=== PATIENT | female | born 1980 | race Caucasian/White ===

== ENCOUNTER 2017-05-27 22:42 | Emergency (ER) | payer MEDICAID, OTHER ==
[~2017-05-27] VITALS: Ht 152.4 cm; Wt 87.0 kg
[~2017-05-27 22:42] MED LIST: ALBU05; LISI2.5T47 PO; PROAIR
[2017-05-27] MEDS ORDERED: IPRATROPIUM BROMIDE (0.02%) 0.5MG/2.5ML NEB HHN STA (23:00)
[2017-05-27] MEDS ORDERED: ALBUTEROL (0.083%) 2.5MG/3ML NEB HHN STA (23:00)
[2017-05-27] MEDS ORDERED: PREDNISONE 20MG TABLET PO STA (23:00)
[2017-05-28 00:28] VITALS: BP 138/85
== END 2017-05-28 01:11 | disposition home or self-care (01) ==
LOC: ER 23:55
DX: J45.901 Unspecified asthma with (acute) exacerbation (principal); I10 Essential (primary) hypertension; E03.9 Hypothyroidism, unspecified
CPT/HCPCS: 94644; 99285; J7512; J7611

== ENCOUNTER 2017-09-05 13:13 | Emergency (ER) | payer OTHER ==
[~2017-09-05] VITALS: Ht 152.4 cm; Wt 87.0 kg
[2017-09-05] MEDS ORDERED: DIPHENHYDRAMINE 50MG/ML VIAL IM ONE (14:30)
[2017-09-05] MEDS ORDERED: DEXAMETHASONE 10 MG/ML VIAL IM ONE (14:30)
[2017-09-05 14:38] VITALS: BP 162/105
[2017-09-05] MEDS: IPRATROPIUM/ALBUTEROL 0.5-3(2.5)MG/3ML NEB HHN ONE ×2 (14:54→16:06)
[2017-09-05] MEDS ORDERED: FAMOTIDINE 20MG TABLET PO ONE (15:00)
== END 2017-09-05 15:45 | disposition home or self-care (01) ==
LOC: ER 15:30
DX: R21 Rash and other nonspecific skin eruption (principal); J45.909 Unspecified asthma, uncomplicated; I10 Essential (primary) hypertension; Z79.899 Other long term (current) drug therapy
CPT/HCPCS: 94640; 96372; 99284; J1100; J1200; J7620

== ENCOUNTER 2018-05-17 17:33 | Emergency (ER) | payer MEDICAID, OTHER ==
[~2018-05-17] VITALS: Ht 167.6 cm; Wt 96.0 kg
[2018-05-17] MEDS ORDERED: VISCOUS LIDOCAINE 2% 15 ML UDC MM STA (19:12)
[2018-05-17] MEDS ORDERED: ONDANSETRON HCL 4MG/2ML INJ IV ONE (19:15)
[2018-05-17] MEDS ORDERED: MAGNESIUM/ALUMINUM HYDROXIDE/SIMETHICONE 30ML UDC PO ONE (19:15)
[2018-05-17] MEDS ORDERED: SODIUM CHLORIDE 0.9% IRRIG SOLUTION 1000ML IR ONE (19:15)
[2018-05-17] MEDS ORDERED: FAMOTIDINE 20MG/2ML VIAL IV ONE (19:15)
[2018-05-17] MEDS ORDERED: SODIUM CHLORIDE 0.9% 1,000 ML IR NR (19:30)
[2018-05-17] MEDS ORDERED: DIATR MEGLU/DIATRIZOATE SOLN 30ML ONE (19:31)
[2018-05-17 19:40] LABS: BASOPHILS % 0.3 % (0.0-2.0); EOSINOPHILS % 4.4 % (0.0-5.0); HEMATOCRIT. 32.4 % (36.0-48.0); LYMPHOCYTES % 38.3 % (20.0-50.0); MEAN CORPUSCULAR HEMOGLOBIN 19.9 pg (28.0-32.0); MEAN CORPUSCULAR VOLUME 64.7 fL (81.0-99.0); MEAN PLATELET VOLUME 8.7 fl (7.4-10.4); MONOCYTES % 6.2 % (2.0-8.0); NEUTROPHILS % 50.8 % (40.0-76.0); PLATELET 514 x1000/uL (130-400); RED BLOOD CELL COUNT 5.01 mill/uL (4.2-5.4); RED CELL DISTRIBUTION WIDTH 20.6 % (11.6-14.6)
[2018-05-17 19:41] LABS: CLARITY URINE CLEAR (CLEAR); COLOR URINE YELLOW (YELLOW); KETONES URINE NEGATIVE (NEGATIVE); LEUKOCYTE ESTERASE URINE 1+ (NEGATIVE); NITRITE URINE NEGATIVE (NEGATIVE); OCCULT BLOOD URINE 1+ (NEGATIVE); PH URINE 5.5 (4.5-8.0); PROTEIN URINE NEGATIVE (NEGATIVE); SPECIFIC GRAVITY URINE 1.017 (1.005-1.030); UROBILINOGEN URINE 0.2 E.U./dL (0.2-1.0)
[2018-05-17 19:45] LABS: CHLORIDE 104 mEq/L (98-107)
[2018-05-17 19:59] LABS: PLATELET ESTIMATE MARKEDLY INCREASED
[2018-05-17] MEDS ORDERED: IOHEXOL-300 100 ML BOTTLE ONE (23:35)
[2018-05-18 02:33] VITALS: BP 132/87
== END 2018-05-18 03:34 | disposition home or self-care (01) ==
LOC: ER 17:33
DX: R10.9 Unspecified abdominal pain (principal); J45.909 Unspecified asthma, uncomplicated; I10 Essential (primary) hypertension; Z88.8 Allergy status to other drugs, medicaments and biological substances
CPT/HCPCS: 36415; 74177; 80053; 81003; 81025; 83690; 85025; 96361; 96374; 96375; 99284; J2405; J3490; Q9963; Q9967

== ENCOUNTER 2019-05-17 18:06 | Emergency (ER) | payer OTHER ==
[~2019-05-17] VITALS: Ht 152.4 cm; Wt 83.0 kg
[2019-05-17] MEDS ORDERED: IPRATROPIUM/ALBUTEROL 0.5-3(2.5)MG/3ML NEB HHN ONE (18:30)
[2019-05-17] MEDS ORDERED: PREDNISONE 20MG TABLET PO ONE (18:30)
[2019-05-17 20:01] VITALS: BP 135/72
== END 2019-05-17 20:02 | disposition home or self-care (01) ==
LOC: ER 18:06
DX: J45.901 Unspecified asthma with (acute) exacerbation (principal); H10.10 Acute atopic conjunctivitis, unspecified eye; I10 Essential (primary) hypertension; Z88.8 Allergy status to other drugs, medicaments and biological substances
CPT/HCPCS: 71045; 94640; 99283; J7512; J7610; Z7610

== ENCOUNTER 2019-05-26 14:10 | Emergency (ER) | payer OTHER ==
[~2019-05-26] VITALS: Ht 152.4 cm; Wt 81.0 kg
[2019-05-26] MEDS ORDERED: DEXAMETHASONE 4MG TABLET PO ONE (14:45)
[2019-05-26] MEDS ORDERED: IPRATROPIUM/ALBUTEROL 0.5-3(2.5)MG/3ML NEB HHN ONE (14:45)
[2019-05-26] MEDS ORDERED: IPRATROPIUM BROMIDE (0.02%) 0.5MG/2.5ML NEB HHN ONE (15:30)
[2019-05-26] MEDS ORDERED: ALBUTEROL (0.5%) 2.5MG/0.5ML NEB HHN ONE (15:30)
[2019-05-26 17:00] VITALS: BP 148/97
== END 2019-05-26 18:35 | disposition home or self-care (01) ==
LOC: ER 14:10
DX: J45.901 Unspecified asthma with (acute) exacerbation (principal); I10 Essential (primary) hypertension; Z98.890 Other specified postprocedural states; Z88.8 Allergy status to other drugs, medicaments and biological substances
CPT/HCPCS: 94640; 99284; J7610; J8540; Z7610

== ENCOUNTER 2019-05-28 05:34 | Emergency (ER) | payer OTHER ==
[~2019-05-28] VITALS: Ht 152.4 cm; Wt 83.0 kg
[2019-05-28] MEDS ORDERED: IPRATROPIUM BROMIDE (0.02%) 0.5MG/2.5ML NEB HHN STA ×2 (05:53→06:45)
[2019-05-28] MEDS ORDERED: ALBUTEROL (0.083%) 2.5MG/3ML NEB HHN STA ×2 (05:53→06:45)
[2019-05-28] MEDS ORDERED: METHYLPREDNISOLONE SOD SUCC 125 MG/2 ML VIAL IV STA (06:45)
[2019-05-28] MEDS ORDERED: MAGNESIUM 2 G PREMIX 50 ML IV STA (06:45)
[2019-05-28 08:40] VITALS: BP 148/91
== END 2019-05-28 08:43 | disposition home or self-care (01) ==
LOC: ER 05:34
DX: J45.901 Unspecified asthma with (acute) exacerbation (principal); I10 Essential (primary) hypertension; Z88.8 Allergy status to other drugs, medicaments and biological substances; Z98.890 Other specified postprocedural states
CPT/HCPCS: 71045; 94640; 94644; 96365; 96375; 99285; J2930; J3475; Z7610

== ENCOUNTER 2021-12-02 23:16 | Emergency (ER) | payer OTHER ==
[~2021-12-02] VITALS: Ht 152.4 cm; Wt 100.0 kg
[2021-12-03 01:23] VITALS: BP 130/72
== END 2021-12-03 04:00 ==
LOC: ER 23:16
DX: T74.21XA Adult sexual abuse, confirmed, initial encounter (principal); J45.909 Unspecified asthma, uncomplicated; I10 Essential (primary) hypertension; Z88.8 Allergy status to other drugs, medicaments and biological substances; Z98.890 Other specified postprocedural states
CPT/HCPCS: 99281

== ENCOUNTER 2022-03-20 05:12 | Emergency (ER) | payer OTHER ==
[~2022-03-20] VITALS: Ht 165.1 cm; Wt 80.0 kg
[2022-03-20 05:24] VITALS: BP 179/86
[2022-03-20] MEDS ORDERED: ALBUTEROL (0.083%) 2.5MG/3ML NEB HHN STA (05:48)
[2022-03-20] MEDS ORDERED: METHYLPREDNISOLONE SOD SUCC 125 MG/2 ML VIAL IV STA (05:48)
[2022-03-20] MEDS ORDERED: METHYLPREDNISOLONE SOD SUCC 125 MG/2 ML VIAL IV NR (08:30)
[2022-03-20] MEDS: ALBUTEROL (0.083%) 2.5MG/3ML NEB HHN NR ×2 (08:45→10:53)
== END 2022-03-20 11:30 | disposition home or self-care (01) ==
LOC: ER 05:18
DX: J45.901 Unspecified asthma with (acute) exacerbation (principal); I10 Essential (primary) hypertension; Z88.8 Allergy status to other drugs, medicaments and biological substances
CPT/HCPCS: 71045; 93005; 94640; 96374; 99283; J2930; Z7610

== ENCOUNTER 2024-04-27 10:38 | Emergency (ER) | payer SELFPAY ==
[~2024-04-27] VITALS: Ht 162.6 cm; Wt 72.0 kg
[2024-04-27 10:42] VITALS: O2SAT 95
[2024-04-27 10:45] VITALS: BP 182/106; TEMP 36.7
[2024-04-27] MEDS: METHYLPREDNISOLONE SOD SUCC 125MG/2ML (ACT-O-VIAL) IM STA (11:26)
[2024-04-27 11:27] VITALS: PULSE 112; RESP 20; O2SAT 90
[2024-04-27] MEDS: ALBUTEROL (0.083%) 2.5MG/3ML NEB HHN STA (11:27)
[2024-04-27] MEDS: IPRATROPIUM BROMIDE (0.02%) 0.5MG/2.5ML NEB HHN STA (11:27)
[2024-04-27] MEDS ORDERED: ALBU90AE INH (12:57)
[2024-04-27] MEDS ORDERED: METH4TAB95 MT (12:57)
== END 2024-04-27 13:50 | disposition home or self-care (01) ==
LOC: ER 10:38
DX: J45.901 Unspecified asthma with (acute) exacerbation (principal); I10 Essential (primary) hypertension; Z79.899 Other long term (current) drug therapy; Z88.8 Allergy status to other drugs, medicaments and biological substances
CPT/HCPCS: 94664; 94070; 96372; 99285; J2919; Z7610 ×2; 94640